=== PATIENT | male | born 1950 | race Caucasian/White ===

== ENCOUNTER 2022-03-19 14:58 | Outpatient (CLI) | payer MEDICARE, OTHER | END 2022-03-19 14:59 | disposition home or self-care (01) | LOC: CSHRAD 14:58 | PROVIDERS: ATTEND Family Medicine Sports Medicine | DX: R06.09 Other forms of dyspnea (principal); J98.4 Other disorders of lung; J90 Pleural effusion, not elsewhere classified; E55.9 Vitamin D deficiency, unspecified | CPT/HCPCS: 71046; 80053; 81001; 82306; 83880; 84443; 85025 ==